=== PATIENT | female | born 1975 | race Two or more races ===

== ENCOUNTER 2024-04-14 13:36 | Emergency (ER) | payer MEDICAID ==
[2024-04-14] MEDS: Sodium Chloride 0.9% 1,000 ML IV ONE (15:22)
[2024-04-14] MEDS: Ketorolac 30 MG/ML SDV IVPUSH ONE (15:23)
[2024-04-14] MEDS: Ondansetron 4 MG/2 ML SDV IVPUSH ONE (15:23)
[2024-04-14 15:29] LABS: HEMOGLOBIN 14.3 g/dL (12.0-16.0); MEAN CORPUSCULAR HEMOGLOBIN 30.9 pg (28.0-32.0); MEAN CORPUSCULAR HGB CONC 34.9 g/dL (32.0-36.0); MEAN CORPUSCULAR VOLUME 88.6 fL (83.0-99.0); MEAN PLATELET VOLUME 9.8 fL (9.4-12.3); PLATELET COUNT,PLT 303 K/uL (150-400); RED BLOOD CELL COUNT 4.63 M/uL (4.10-5.30); WHITE BLOOD CELL COUNT,WBC 5.67 K/uL (3.9-11.3)
[2024-04-14 15:44] LABS: ALBUMIN 3.3 g/dL (3.4-5.0); BILIRUBIN TOTAL 0.3 mg/dL (0.2-1.0); CALCIUM 8.9 mg/dL (8.5-10.1); CREATININE 1.1 mg/dL (0.6-1.0); EST CRCL DRUG DOSING (CG) 43.46 mL/min; POTASSIUM,K 3.7 mmol/L (3.5-5.1); PROTEIN TOTAL,TP 6.7 g/dL (6.4-8.2)
[2024-04-14 15:47] LABS: CORONAVIRUS COVID-19 NAA POSITIVE (NEGATIVE); INFLUENZA A NAA NEGATIVE (NEGATIVE); INFLUENZA B NAA NEGATIVE (NEGATIVE)
[2024-04-14 16:13] LABS: BAND ABSOLUTE MAN 0.06; BAND PERCENT MAN 1 %; LYMPHOCYTES ABSOLUTE MAN 1.42 K/uL (1.00-4.80); LYMPHOCYTES PERCENT MAN 25 % (24-44); MONOCYTES ABSOLUTE MAN 0.28 K/uL (0.00-0.80); MONOCYTES PERCENT MAN 5 % (0-8); SEG NEUTROPHILS ABSOLUTE MAN 3.86 K/uL (1.80-7.70); SEG NEUTROPHILS PERCENT MAN 68 % (41-71)
[2024-04-14 16:14] LABS: EOSINOPHILS ABSOLUTE MAN 0.06 K/uL (0.00-0.45); EOSINOPHILS PERCENT MAN 1 % (0-6)
== END 2024-04-14 16:17 | disposition home or self-care (01) ==
LOC: MW.ED 13:36
DX: U07.1 COVID-19 (principal); Z75.8 Other problems related to medical facilities and other health care; Z79.899 Other long term (current) drug therapy
CPT/HCPCS: 0240U; 36415; 71045; 80053; 85025; 96361; 96374; 96375; 99284; J1885; J2405; J7030